=== PATIENT | male | born 1970 | race American Indian/Alaskan Native ===

== ENCOUNTER 2020-09-29 05:33 | Inpatient (IN) | payer MEDICAID, OTHER ==
[2020-09-29] MEDS ORDERED: ASPIRIN 325 MG TAB PO ONE (07:13)
[2020-09-29 07:36] LABS: Basophils % (Auto) 0.6 % (0.0-1.8); Eosinophils % (Auto) 0.4 % (0.0-4.3); Hematocrit 45.2 % (35.5-45.6); Hemoglobin 15.3 gm/dl (11.8-15.2); Lymphocytes # (Auto) 1.6 K/mm3 (1.2-5.4); Lymphocytes % (Auto) 21.7 % (13.4-35.0); Mean Corpuscular HGB Conc 34 % (32-34); Mean Corpuscular Volume 88 fl (84-94); Monocytes # (Auto) 0.5 K/mm3 (0.0-0.8); Monocytes % (Auto) 6.5 % (0.0-7.3); Platelet Count 203 K/mm3 (140-440); Red Blood Count 5.15 M/mm3 (3.65-5.03); Red Cell Distribution Width 13.3 % (13.2-15.2)
[2020-09-29 07:59] LABS: Alanine Aminotransferase 30 units/L (7-56); Albumin 4.7 g/dL (3.9-5); BUN/Creatinine Ratio 17; Blood Urea Nitrogen 17 mg/dL (9-20); Calcium 9.7 mg/dL (8.4-10.2); Hemolysis Index 4
--- NOTE | 2020-09-29 08:18 | XRay Report ---
CHEST 2 VIEWS INDICATION / CLINICAL INFORMATION: chest pain. COMPARISON: None available. FINDINGS: SUPPORT DEVICES: None. HEART / MEDIASTINUM: No significant abnormality. LUNGS / PLEURA: No significant pulmonary or pleural abnormality. No pneumothorax. ADDITIONAL FINDINGS: No significant additional findings. IMPRESSION: 1. No acute findings. Signer Name: Mis Alvarez MD Signed: 09/29/2020 8:13 AM Workstation Name: [id number]
--- NOTE | 2020-09-29 08:48 | Emergency Department Report ---
ED Chest Pain HPI - General Chief Complaint: Chest Pain Stated Complaint: CHEST PAIN Time Seen by Provider: 09/29/20 08:26 Source: patient Mode of arrival: Ambulatory Limitations: No Limitations - History of Present Illness Initial Comments: Chief complaint: Chest pain HPI: This is a 50-year-old male with history of dyslipidemia and GERD who has had recurrent chest pain for the past 2 weeks. Recently PCP diagnosed patient with dyslipidemia and GERD. He was prescribed sucralfate, pantoprazole, Reglan, and atorvastatin. He himself has taken 81 mg tablets of aspirin for the last 2 weeks. His mother had a history of heart attacks while she was in her 70s. Patient has eaten fast food greasy food over the last several days. He has chest pain discomfort at night. He feels as if something is stuck in his chest. Tends to occur at night. Tends to be worse in the morning. This morning he had severe discomfort worse on the left side and centrally. He contacted EMS who transported him to the hospital. He has no longer in discomfort. He did not have any shortness of breath or vomiting. Patient has cardiology appointment set for next month. MD Complaint: chest pain -: Gradual, week(s) (2 weeks) Onset: during rest, after eating Pain Location: substernal Pain Radiation: none Severity: moderate Severity scale (0 -10): 7 Quality: dull Consistency: now resolved Improves With: nothing Worsens With: nothing Treatments Prior to Arrival: other (EMS transport) - Related Data Allergies Allergy/AdvReac Type Severity Reaction Status Date / Time No Known Allergies Allergy Unverified 09/29/20 07:12 Heart Score - HEART Score History: Slightly suspicious EKG: Significant ST-depression Age: 45-65 Risk factors: 1-2 risk factors Troponin: < normal limit HEART Score: 4 ED Review of Systems ROS: Stated complaint: CHEST PAIN Other details as noted in HPI Comment: All other systems reviewed and negative Constitutional: denies: fever, malaise Respiratory: denies: cough, shortness of breath Cardiovascular: chest pain Gastrointestinal: denies: abdominal pain, nausea, vomiting ED Past Medical Hx - Past Medical History Previous Medical History?: Yes Hx GERD: Yes Additional medical history: Dyslipidemia - Surgical History Past Surgical History?: No - Family History Family history: vascular disease - Social History Smoking Status: Never Smoker Substance Use Type: None ED Physical Exam - General Limitations: No Limitations General appearance: alert, in no apparent distress, other (Pleasant smiling c omfortable talkative) - Head Head exam: Present: atraumatic, normocephalic - Eye Eye exam: Present: normal appearance - ENT ENT exam: Present: normal orophraynx, mucous membranes moist - Neck Neck exam: Present: normal inspection, full ROM - Respiratory Respiratory exam: Present: normal lung sounds bilaterally. Absent: respiratory distress, wheezes, rales, rhonchi - Cardiovascular Cardiovascular Exam: Present: regular rate, normal rhythm, normal heart sounds. Absent: systolic murmur, diastolic murmur, rubs, gallop - GI/Abdominal GI/Abdominal exam: Present: soft, normal bowel sounds. Absent: distended, tenderness, guarding, rebound - Rectal Rectal exam: Present: deferred - Extremities Exam Extremities exam: Present: normal inspection - Neurological Exam Neurological exam: Present: alert, oriented X3 - Psychiatric Psychiatric exam: Present: normal affect, normal mood - Skin Skin exam: Present: warm, dry, intact, normal color. Absent: rash ED Course Vital Signs 09/29/20 06:03 Temperature 98.5 F Pulse Rate 93 H Respiratory 18 Rate Blood Pressure 163/100 O2 Sat by Pulse 99 Oximetry ED Medical Decision Making - Lab Data Result diagrams: 09/29/20 07:17 09/29/20 07:17 Laboratory Results - last 24 hr 09/29/20 09/29/20 09/29/20 07:17 07:17 07:17 WBC 7.3 RBC 5.15 H Hgb 15.3 H Hct 45.2 MCV 88 MCH 30 MCHC 34 RDW 13.3 Plt Count 203 Lymph % (Auto) 21.7 [place] % (Auto) 6.5 Eos % (Auto) 0.4 Baso % (Auto) 0.6 Lymph # (Auto) 1.6 [place] # (Auto) 0.5 Eos # (Auto) 0.0 Baso # (Auto) 0.0 Seg Neutrophils % 70.8 H Seg Neutrophils # 5.2 Sodium 140 Potassium 4.1 Chloride 101.2 Carbon Dioxide 33 H Anion Gap 10 BUN 17 Creatinine 1.0 Estimated GFR > 60 BUN/Creatinine Ratio 17 Glucose 128 H Calcium 9.7 Total Bilirubin 0.50 AST 28 ALT 30 Alkaline Phosphatase 93 Troponin T 0.045 H Total Protein 7.7 Albumin 4.7 Albumin/Globulin Ratio 1.6 - EKG Data -: EKG Interpreted by Me EKG shows normal: sinus rhythm, axis, intervals, QRS complexes Rate: normal - EKG Data 09/29/20 08:48 EKG obtained 0548 EKG interpreted by me Normal sinus rhythm rate 89 bpm normal axis normal intervals ST depression in inferior lateral leads [address] elevation in aVR - Radiology Data Radiology results: report reviewed CHEST 2 VIEWS INDICATION / CLINICAL INFORMATION: chest pain. COMPARISON: None available. FINDINGS: SUPPORT DEVICES: None. HEART / MEDIASTINUM: No significant abnormality. LUNGS / PLEURA: No significant pulmonary or pleural abnormality. No pneumothorax. ADDITIONAL FINDINGS: No significant additional findings. IMPRESSION: 1. No acute findings - Medical Decision Making Acute coronary syndrome, patient has abnormal EKG with elevated troponin. Patient given aspirin. Patient currently chest pain-free. I spoke with Mikaela Hernandez NP for [facility], Heparin therapy initiated. Critical care attestation.: If time is entered above; I have spent that time in minutes in the direct care of this critically ill patient, excluding procedure time. ED Disposition Clinical Impression: Acute coronary syndrome Disposition: OP ADMIT IP TO THIS HOSP Is pt being admited?: Yes Does the pt Need Aspirin: No Condition: Stable
[2020-09-29] MEDS ORDERED: HEPARIN 10,000 UNITS/10 ML VIAL IV PRN (10:01)
[2020-09-29] MEDS ORDERED: HEPARIN 10,000 UNITS/10 ML VIAL IV ONE (10:01)
[2020-09-29 10:07] LABS: Chol/HDL Ratio 3.4 %
[2020-09-29 10:52] LABS: Hematocrit 45.4 % (35.5-45.6); Hemoglobin 15.3 gm/dl (11.8-15.2)
[2020-09-29 11:00] LABS: INR 0.91 (0.87-1.13); Partial Thromboplastin Time 29.7 Sec. (24.2-36.6)
[2020-09-29] MEDS ORDERED: ALBUTEROL 2.5 MG/3 ML NEBU IH PRN (11:00)
[2020-09-29] MEDS ORDERED: ACETAMINOPHEN 325 MG TAB PO PRN (11:00)
[2020-09-29] MEDS ORDERED: MORPHINE 2 MG/1 ML INJ IV PRN (11:00)
[2020-09-29] MEDS ORDERED: ONDANSETRON 4 MG/2 ML INJ IV PRN (11:00)
[2020-09-29] MEDS ORDERED: PANTOPRAZOLE 40 MG INJ IV SCH (11:00)
[2020-09-29] MEDS ORDERED: HEPARIN/ 0.45% NACL DRIP 25,000 UNIT/500 ML BAG IV SCH (11:00)
[2020-09-29] MEDS ORDERED: DEXTROSE 50% IN WATER (25GM) 50 ML SYRINGE IV PRN (11:00)
[2020-09-29] MEDS: METOCLOPRAMIDE 10 MG TAB PO SCH ×3 (12:02→21:38)
--- NOTE | 2020-09-29 12:50 | Consultation ---
History of Present Illness Consult date: 09/29/20 Consult reason: chest pain History of present illness: This is a 50 year old M with no prior cardiac history who presents to the emergency department with chest pain, intermittent for several weeks. Patient reports chest on on exertion or with heavy lifting associated with shortness of breath. A week ago, he saw his PCP who prescribed Protonix for GERD and referred him to [facility] cardiology and has an upcoming appointment. Chest x-ray is n egative. Initial troponin measurement is mildly elevated and his ECG is sinus rhythm with inferior lateral ST depression. No prior ECG for comparison. Past History Past Medical History: hyperlipidemia Social history: smoking (former), alcohol abuse (former) Medications and Allergies Allergies Allergy/AdvReac Type Severity Reaction Status Date / Time No Known Allergies Allergy Unverified 09/29/20 07:12 Active Meds: Active Medications Acetaminophen (Acetaminophen 325 Mg Tab) 650 mg PO Q4H PRN PRN Reason: Pain MILD(1-3)/Fever >100.5/TOTH Albuterol (Albuterol 2.5 Mg/3 Ml Nebu) 2.5 mg IH Q3HRT PRN PRN Reason: Shortness Of Breath Albuterol/Ipratropium (Ipratropium/Albuterol Sulfate 3 Ml Ampul.Neb) 1 ampul IH Q6HRT JT Aspirin (Aspirin 325 Mg Tab) 325 mg PO QDAY JT Atorvastatin Calcium (Atorvastatin 40 Mg Tab) 40 mg PO QHS JT Dextrose (Dextrose 50% In Water (25gm) 50 Ml Syringe) 50 ml IV Q30MIN PRN; Protocol PRN Reason: Hypoglycemia Heparin Sodium (Porcine) (Heparin 10,000 Units/10 Ml Vial) 2,500 unit 40 unit/kg (2500 unit) IV Q6H PRN PRN Reason: Anti-Xa Assay < 0.1 units/ml Heparin Sodium/Sodium Chloride (Heparin/ 0.45% Nacl-25,000 Unit/500 Ml) 25,000 unit in 500 mls @ 18 mls/hr IV TITRATE JT; Protocol Last Admin: 09/29/20 11:13 Dose: 900 units/hr, 18 mls/hr Documented by: Metoclopramide HCl (Metoclopramide 10 Mg Tab) 5 mg PO ACHS JT Last Admin: 09/29/20 12:02 Dose: 5 mg Documented by: Morphine Sulfate (Morphine 2 Mg/1 Ml Inj) 2 mg IV Q4H PRN PRN Reason: Pain, Moderate (4-6) Ondansetron HCl (Ondansetron 4 Mg/2 Ml Inj) 4 mg IV Q8H PRN PRN Reason: Nausea And Vomiting Pantoprazole Sodium (Pantoprazole 40 Mg Inj) 40 mg IV QDAY [facility] Last Admin: 09/29/20 11:09 Dose: 40 mg Documented by: Sodium Chloride (Sodium Chloride 0.9% 10 Ml Flush Syringe) 10 ml IV BID [facility] Last Admin: 09/29/20 11:09 Dose: 10 ml Documented by: Sodium Chloride (Sodium Chloride 0.9% 10 Ml Flush Syringe) 10 ml IV PRN PRN PRN Reason: LINE FLUSH Review of Systems Cardiovascular: chest pain, shortness of breath (intermittent), no palpitations, no rapid/irregular heart beat, no edema, no syncope, no lightheadedness Physical Examination Vital Signs Temp Pulse Resp BP Pulse Ox 98.5 F 93 H 18 163/100 99 09/29/20 06:03 09/29/20 06:03 09/29/20 06:03 09/29/20 06:03 09/29/20 06:03 General appearance: no acute distress HEENT: Positive: PERRL Neck: Positive: trachea midline Cardiac: Positive: Reg Rate and Rhythm Lungs: Positive: Normal Breath Sounds Neuro: Positive: Grossly Intact Extremities: Absent: edema Results 09/29/20 10:20 09/29/20 07:17 Cardiac Enzymes 09/29/20 Range/Units 07:17 AST 28 (5-40) units/L Coagulation 09/29/20 Range/Units 10:20 PT 12.1 L (12.2-14.9) Sec. INR 0.91 (0.87-1.13) APTT 29.7 (24.2-36.6) Sec. Lipids 09/29/20 Range/Units 07:17 Triglycerides 64 (2-149) mg/dL Cholesterol 143 (50-199) mg/dL HDL Cholesterol 42 (40-59) mg/dL Cholesterol/HDL Ratio 3.40 % CBC 09/29/20 09/29/20 Range/Units 07:17 10:20 WBC 7.3 (4.5-11.0) K/mm3 RBC 5.15 H (3.65-5.03) M/mm3 Hgb 15.3 H 15.3 H (11.8-15.2) gm/dl Hct 45.2 45.4 (35.5-45.6) % Plt Count 203 209 (140-440) K/mm3 Lymph # (Auto) 1.6 (1.2-5.4) K/mm3 [place] # (Auto) 0.5 (0.0-0.8) K/mm3 Eos # (Auto) 0.0 (0.0-0.4) K/mm3 Baso # (Auto) 0.0 (0.0-0.1) K/mm3 Comprehensive Metabolic Panel 09/29/20 Range/Units 07:17 Sodium 140 (137-145) mmol/L Potassium 4.1 (3.6-5.0) mmol/L Chloride 101.2 (98-107) mmol/L Carbon Dioxide 33 H (22-30) mmol/L BUN 17 (9-20) mg/dL Creatinine 1.0 (0.8-1.3) mg/dL Glucose 128 H (75-100) mg/dL Calcium 9.7 (8.4-10.2) mg/dL AST 28 (5-40) units/L ALT 30 (7-56) units/L Alkaline Phosphatase 93 (35-129) units/L Total Protein 7.7 (6.3-8.2) g/dL Albumin 4.7 (3.9-5) g/dL
--- NOTE | 2020-09-29 13:36 | History and Physical Report ---
History of Present Illness Date of examination: 09/29/20 Date of admission: 09/29/20 10:03 Chief complaint: Left-sided chest pain History of present illness: Patient is a 50-year-old male with past medical history of GERD, hyperlipidemia who presents to the ED with complaints of chest pain that has been ongoing intermittently for about a week worse in the last 2 days and also this morning on waking. Was recently seen by GI outpatient and treated with antacids and reflux medications. He reports that his pain is 3/10 in intensity this morning woke him up from sleep. Otherwise is normally exacerbated by activity or heavy lifting but dissipates with rest. There is no reproducible. In the ED he was noted to have borderline ST depression with mild elevation in troponin concerning for ischemia. Is being admitted for further cardiology work-up and possible cardiac catheterization. Past History Past Medical History: hyperlipidemia Past Surgical History: No surgical history Social history: smoking (former), alcohol abuse (former) Family history: diabetes (Mother) Medications and Allergies Allergies Allergy/AdvReac Type Severity Reaction Status Date / Time No Known Allergies Allergy Unverified 09/29/20 07:12 Active Meds: Active Medications Acetaminophen (Acetaminophen 325 Mg Tab) 650 mg PO Q4H PRN PRN Reason: Pain MILD(1-3)/Fever >100.5/TOTH Albuterol (Albuterol 2.5 Mg/3 Ml Nebu) 2.5 mg IH Q3HRT PRN PRN Reason: Shortness Of Breath Albuterol/Ipratropium (Ipratropium/Albuterol Sulfate 3 Ml Ampul.Neb) 1 ampul IH Q6HRT JT Aspirin (Aspirin 325 Mg Tab) 325 mg PO QDAY JT Atorvastatin Calcium (Atorvastatin 40 Mg Tab) 40 mg PO QHS JT Dextrose (Dextrose 50% In Water (25gm) 50 Ml Syringe) 50 ml IV Q30MIN PRN; Protocol PRN Reason: Hypoglycemia Heparin Sodium (Porcine) (Heparin 10,000 Units/10 Ml Vial) 2,500 unit 40 unit/kg (2500 unit) IV Q6H PRN PRN Reason: Anti-Xa Assay < 0.1 units/ml Heparin Sodium/Sodium Chloride (Heparin/ 0.45% Nacl-25,000 Unit/500 Ml) 25,000 unit in 500 mls @ 18 mls/hr IV TITRATE JT; Protocol Last Admin: 09/29/20 11:13 Dose: 900 units/hr, 18 mls/hr Documented by: Metoclopramide HCl (Metoclopramide 10 Mg Tab) 5 mg PO ACHS [facility] Last Admin: 09/29/20 12:02 Dose: 5 mg Documented by: Metoprolol Tartrate (Metoprolol Tartrate 50 Mg Tab) 50 mg PO Q8H [facility] Morphine Sulfate (Morphine 2 Mg/1 Ml Inj) 2 mg IV Q4H PRN PRN Reason: Pain, Moderate (4-6) Nitroglycerin (Nitroglycerin 2% Oint 1 Gm) 1 inch TP QIDNTG [facility]; Protocol Ondansetron HCl (Ondansetron 4 Mg/2 Ml Inj) 4 mg IV Q8H PRN PRN Reason: Nausea And Vomiting Pantoprazole Sodium (Pantoprazole 40 Mg Inj) 40 mg IV QDAY [facility] Last Admin: 09/29/20 11:09 Dose: 40 mg Documented by: Sodium Chloride (Sodium Chloride 0.9% 10 Ml Flush Syringe) 10 ml IV BID [facility] Last Admin: 09/29/20 11:09 Dose: 10 ml Documented by: Sodium Chloride (Sodium Chloride 0.9% 10 Ml Flush Syringe) 10 ml IV PRN PRN PRN Reason: LINE FLUSH Review of Systems All systems: negative Constitutional: no weight loss, no weight gain, no fever, no chills, no sweats, no fatigue, no weakness, no malaise Cardiovascular: chest pain, no orthopnea, no palpitations, no rapid/irregular heart beat, no edema, no syncope, no lightheadedness, no shortness of breath, no dyspnea on exertion, no phlebitis, no decreased exercise tolerance Respiratory: no cough, no cough with sputum, no hemoptysis, no shortness of breath, no dyspnea on exertion, no wheezing Gastrointestinal: no abdominal pain, no nausea, no diarrhea, no constipation, no change in bowel habits, no hematemesis, no melena, no loss of appetite, no early satiety Exam - Physical Exam Narrative exam: VITAL SIGNS: Reviewed. GENERAL: The patient appears normally developed, Vital signs as documented. HEAD: No signs of head trauma. EYES: Pupils are equal. Extraocular motions intact. EARS: Hearing grossly intact. MOUTH: Oropharynx is normal. NECK: No adenopathy, no JVD. CHEST: Chest with clear breath sounds bilaterally. No wheezes, rales, or rhonchi. CARDIAC: Regular rate and rhythm. S1 and S2, without murmurs, gallops, or rubs. VASCULAR: No Edema. Peripheral pulses normal and equal in all extremities. ABDOMEN: Soft, non tender and non distended. No rebound or guarding, and no masses palpated. Bowel Sounds normal. MUSCULOSKELETAL: Good range of motion of all major joints. Extremities without clubbing, cyanosis or edema. NEUROLOGIC EXAM: Alert and oriented x 3 No focal sensory or strength deficits. Speech normal. Follows commands. PSYCHIATRIC: Mood normal. SKIN: detail exam as documented in skin assessment - Constitutional Vitals: Temp Pulse Resp BP Pulse Ox 98.5 F 93 H 18 163/100 99 09/29/20 06:03 09/29/20 06:03 09/29/20 06:03 09/29/20 06:03 09/29/20 06:03 HEART Score - HEART Score EKG: Significant ST-depression Age: 45-65 Risk factors: 1-2 risk factors Troponin: Troponin T 0.045 ng/mL (0.00-0.029) H 09/29/20 07:17 Troponin: < normal limit Results - Labs CBC & Chem 7: 09/29/20 10:20 09/29/20 07:17 Labs: Laboratory Last Values WBC 7.3 K/mm3 (4.5-11.0) 09/29/20 07:17 RBC 5.15 M/mm3 (3.65-5.03) H 09/29/20 07:17 Hgb 15.3 gm/dl (11.8-15.2) H 09/29/20 10:20 Hct 45.4 % (35.5-45.6) 09/29/20 10:20 MCV 88 fl (84-94) 09/29/20 07:17 MCH 30 pg (28-32) 09/29/20 07:17 MCHC 34 % (32-34) 09/29/20 07:17 RDW 13.3 % (13.2-15.2) 09/29/20 07:17 Plt Count 209 K/mm3 (140-440) 09/29/20 10:20 Lymph % (Auto) 21.7 % (13.4-35.0) 09/29/20 07:17 [place] % (Auto) 6.5 % (0.0-7.3) 09/29/20 07:17 Eos % (Auto) 0.4 % (0.0-4.3) 09/29/20 07:17 Baso % (Auto) 0.6 % (0.0-1.8) 09/29/20 07:17 Lymph # (Auto) 1.6 K/mm3 (1.2-5.4) 09/29/20 07:17 [place] # (Auto) 0.5 K/mm3 (0.0-0.8) 09/29/20 07:17 Eos # (Auto) 0.0 K/mm3 (0.0-0.4) 09/29/20 07:17 Baso # (Auto) 0.0 K/mm3 (0.0-0.1) 09/29/20 07:17 Seg Neutrophils % 70.8 % (40.0-70.0) H 09/29/20 07:17 Seg Neutrophils # 5.2 K/mm3 (1.8-7.7) 09/29/20 07:17 PT 12.1 Sec. (12.2-14.9) L 09/29/20 10:20 INR 0.91 (0.87-1.13) 09/29/20 10:20 APTT 29.7 Sec. (24.2-36.6) 09/29/20 10:20 Sodium 140 mmol/L (137-145) 09/29/20 07:17 Potassium 4.1 mmol/L (3.6-5.0) 09/29/20 07:17 Chloride 101.2 mmol/L (98-107) 09/29/20 07:17 Carbon Dioxide 33 mmol/L (22-30) H 09/29/20 07:17 Anion Gap 10 mmol/L 09/29/20 07:17 BUN 17 mg/dL (9-20) 09/29/20 07:17 Creatinine 1.0 mg/dL (0.8-1.3) 09/29/20 07:17 Estimated GFR > 60 ml/min 09/29/20 07:17 BUN/Creatinine Ratio 17 % 09/29/20 07:17 Glucose 128 mg/dL (75-100) H 09/29/20 07:17 Calcium 9.7 mg/dL (8.4-10.2) 09/29/20 07:17 Total Bilirubin 0.50 mg/dL (0.1-1.2) 09/29/20 07:17 AST 28 units/L (5-40) 09/29/20 07:17 ALT 30 units/L (7-56) 09/29/20 07:17 Alkaline Phosphatase 93 units/L (35-129) 09/29/20 07:17 Troponin T 0.045 ng/mL (0.00-0.029) H 09/29/20 07:17 Total Protein 7.7 g/dL (6.3-8.2) 09/29/20 07:17 Albumin 4.7 g/dL (3.9-5) 09/29/20 07:17 Albumin/Globulin Ratio 1.6 % 09/29/20 07:17 Triglycerides 64 mg/dL (2-149) 09/29/20 07:17 Cholesterol 143 mg/dL (50-199) 09/29/20 07:17 LDL Cholesterol Direct 98 mg/dL (50-130) 09/29/20 07:17 HDL Cholesterol 42 mg/dL (40-59) 09/29/20 07:17 Cholesterol/HDL Ratio 3.40 % 09/29/20 07:17 Assessment and Plan Assessment and plan: Patient is a 50-year-old male with past medical history of GERD, hyperlipidemia who presents to the ED with complaints of chest pain that has been ongoing intermittently for about a week worse in the last 2 days and also this morning on waking. Was recently seen by GI outpatient and treated with antacids and reflux medications. He reports that his pain is 3/10 in intensity this morning woke him up from sleep. Otherwise is normally exacerbated by activity or heavy lifting but dissipates with rest. There is no reproducible. In the ED he was noted to have borderline ST depression with mild elevation in troponin concerning for ischemia. Is being admitted for further cardiology work-up and possible cardiac catheterization. Non-ST elevated CT GERD Hyperlipidemia PLAN Admit to [facility] for pain Oxygen Plan as outlined by Cardiology Continue IV heparin, nitrates, beta-blockers, aspirin and statin. NPO after midnight for cardiac catheterization DVT/GI prophy Plan discussed with the patient in detail Advance Directives: Yes Plan of care discussed with patient/family: Yes
[2020-09-29] MEDS: METOPROLOL TARTRATE 50 MG TAB PO SCH ×2 (15:33→21:38)
[2020-09-29] MEDS: IPRATROPIUM/ALBUTEROL SULFATE 3 ML AMPUL.NEB IH SCH ×2 (15:34→20:07)
[2020-09-29] MEDS: NITROGLYCERIN 2% OINT 1 GM TP SCH ×2 (15:34→19:48)
[2020-09-29 16:28] LABS: Creatine Kinase MB 12.2 ng/mL (0.0-4.0)
[2020-09-29 19:23] LABS: Creatine Kinase MB 11.3 ng/mL (0.0-4.0)
[2020-09-29] MEDS ORDERED: FAMOTIDINE 20 MG/2 ML INJ IV SCH (22:00)
[2020-09-30] MEDS: IPRATROPIUM/ALBUTEROL SULFATE 3 ML AMPUL.NEB IH SCH ×2 (02:13→08:21)
[2020-09-30 02:41] LABS: INR 1.04 (0.87-1.13)
[2020-09-30 05:39] LABS: BUN/Creatinine Ratio 15; Blood Urea Nitrogen 16 mg/dL (9-20); Calcium 9.2 mg/dL (8.4-10.2); Hemolysis Index 7
[2020-09-30] MEDS: METOPROLOL TARTRATE 50 MG TAB PO SCH (05:42)
[2020-09-30] MEDS: NITROGLYCERIN 2% OINT 1 GM TP SCH ×2 (05:42→14:50)
[2020-09-30] MEDS ORDERED: ASPIRIN 325 MG TAB ONE (07:54)
[2020-09-30] MEDS ORDERED: SODIUM CHLORIDE 0.9% 500 ML 500 ML IV SCH (08:00)
[2020-09-30] MEDS ORDERED: HEPARIN/NS 5000 UNIT/500ML 1,000 ML IR ONE (08:03)
[2020-09-30] MEDS ORDERED: MIDAZOLAM 2 MG/2 ML INJ ONE (08:03)
[2020-09-30] MEDS ORDERED: HEPARIN 10,000 UNITS/10 ML VIAL ONE ×2 (08:03→13:01)
[2020-09-30] MEDS ORDERED: LIDOCAINE (2%) 20 MG/1 ML VIAL 20 ML MDV INFILTRATI ONE ×2 (08:04→08:45)
[2020-09-30] MEDS ORDERED: fentaNYL 100 MCG/2 ML INJ ONE (08:04)
[2020-09-30] MEDS ORDERED: VERAPAMIL 5 MG/2 ML INJ ONE (08:04)
[2020-09-30] MEDS ORDERED: NITROGLYCERIN SYRINGE 3 ML ONE (08:04)
[2020-09-30] MEDS ORDERED: MIDAZOLAM 2 MG/2 ML INJ IV ONE (08:41)
[2020-09-30] MEDS ORDERED: fentaNYL 100 MCG/2 ML INJ IV ONE (08:41)
[2020-09-30] MEDS ORDERED: VERAPAMIL 5 MG/2 ML INJ ART-SHEATH ONE (08:45)
[2020-09-30] MEDS ORDERED: NITROGLYCERIN 600 MCG/3 ML SYRINGE ART-SHEATH ONE (08:46)
[2020-09-30] MEDS ORDERED: NS IV ONE (08:47)
[2020-09-30] MEDS ORDERED: TIROFIBAN IV ONE (08:47)
[2020-09-30] MEDS ORDERED: HEPARIN 10,000 UNITS/10 ML VIAL ART-SHEATH ONE (08:47)
--- NOTE | 2020-09-30 09:20 | Cardiac Catherization Report ---
CARDIAC CATHETERIZATION REPORT REASON FOR PROCEDURE: The patient is a 50-year-old man who presented with chest pain, ST depression and elevated cardiac isoenzymes, consistent with a non-ST elevation myocardial infarction. Cardiac catheterization was recommended as part of an early invasive therapy. PROCEDURES: 1. Left heart catheterization. 2. Selective left and right coronary angiography. 3. Left ventricular angiography. 4. Sedation time, start 0841, end 0855. I was present for the entire procedure and supervised the moderate sedation protocol. The patient was prepped and draped in a sterile fashion after informed consent. The right radial cath site was prepped and draped after a negative Lior's test. The right radial artery was entered using Seldinger technique, followed by placement of a 6-Tajik hydrophilic sheath. Routine radial cocktail was administered via the sheath. Selective left and right coronary angiography was performed using a #3.5 left Alexus and #4 right Alexus. The right Alexus was used for left ventricular angiography. Catheters were removed, sheath removed, and hemostasis achieved using a TR band. The patient was returned to the postprocedure unit in stable condition. There were no complications. FINDINGS: HEMODYNAMICS: Left ventricular end-diastolic pressure was 30, following coronary angiography. Ascending aortic pressure was 160/96. There was no significant pressure gradient on pullback across the aortic valve. CORONARY ANGIOGRAPHY: The left main coronary artery was free of significant disease. The left anterior descending artery contained a long, greater than 99% stenosis of its proximal to mid segment, this was a bifurcation lesion involving the origin of a very large proximal diagonal branch. The lesion was associated with delayed antegrade flow down the LAD. The large obtuse marginal branch of the circumflex artery contained a hazy, 90% stenosis of its proximal to mid segment. The right coronary artery was dominant. This vessel contained diffuse atherosclerosis of its mid segment with 2 sequential 70-75% stenosis. Following this, there was another 80% ostial stenosis of a medium to large posterior ventricular branch Left ventricular systolic function was within normal limits, ejection fraction of 55%. CONCLUSION: 1. Severe 3-vessel disease including complex bifurcation disease of the proximal to mid left anterior descending artery and large first diagonal branch. 2. Well preserved left ventricular systolic function, ejection fraction of 55%. RECOMMENDATION: Optimal revascularization strategy will be coronary artery bypass surgery. JOB# [id number] CARIE/WES
[2020-09-30] MEDS ORDERED: ASPIRIN 325 MG TAB PO SCH (10:00)
--- NOTE | 2020-09-30 11:33 | Discharge Summary ---
Providers - Providers Date of Admission: 09/29/20 10:03 Attending physician: CANDIS LEWIS MD 09/29/20 09:59 Consult to Physician [CONS] Stat Comment: Consulting Provider: DELTA CALLES Physician Instructions: Reason For Exam: acute coronary syndrome Primary care physician: [employer] Hospitalization Reason for admission: nstemi Condition: Stable Hospital course: Patient is a 50-year-old male with past medical history of GERD, hyperlipidemia who presents to the ED with complaints of chest pain that has been ongoing intermittently for about a week worse in the last 2 days and also this morning on waking. Was recently seen by GI outpatient and treated with antacids and reflux medications. He reports that his pain is 3/10 in intensity this morning woke him up from sleep. Otherwise is normally exacerbated by activity or heavy lifting but dissipates with rest. There is no reproducible. In the ED he was noted to have borderline ST depression with mild elevation in troponin concerning for ischemia. Is being admitted for further cardiology work-up and possible cardiac catheterization. Patient presented for cardiac catheterization was noted below We performed a cardiac catheterization via the right radial approach, no complications. We found severe three-vessel coronary artery disease. The culprit lesion for the current infarct is a subtotal occlusion of the proximal to mid LAD, involving the origin of a large diagonal branch. In addition, there is a severe lesion of the mid obtuse marginal branch of the circumflex artery, as well as diffuse complex disease of the mid right coronary followed by an 80% ostial stenosis of the right posterior descending branch. Left ventricular systolic function was well-preserved, ejection fraction 55%. Due to the finding of complex three-vessel coronary artery disease, the patient will be referred for surgical multivessel revascularization. We will resume heparin and other guideline directed medical therapy, and plan transfer to [place] for further evaluation and management. Non-ST elevated HI GERD Hyperlipidemia Disposition: DC/TX-70 ANOTHER TYPE [facility] Final Discharge Diagnosis (Prints w/discharge instructions): NSTEMI Time spent for discharge: 35 MINS Core Measure Documentation - Palliative Care Palliative Care/ Comfort Measures: Not Applicable - Core Measures Any of the following diagnoses?: acute HI - Acute HI Discharge Requirements Aspirin at discharge: Yes LANDON/ARB for LVSD if EF <40%: Yes Beta joe at discharge: Yes Statin for LDL = or >100 mg/dl on DC: Yes Exam - Physical Exam Narrative exam: VITAL SIGNS: Reviewed. GENERAL: The patient appears normally developed, Vital signs as documented. HEAD: No signs of head trauma. EYES: Pupils are equal. Extraocular motions intact. EARS: Hearing grossly intact. MOUTH: Oropharynx is normal. NECK: No adenopathy, no JVD. CHEST: Chest with clear breath sounds bilaterally. No wheezes, rales, or rhonchi. CARDIAC: Regular rate and rhythm. S1 and S2, without murmurs, gallops, or rubs. VASCULAR: No Edema. Peripheral pulses normal and equal in all extremities. ABDOMEN: Soft, non tender and non distended. No rebound or guarding, and no masses palpated. Bowel Sounds normal. MUSCULOSKELETAL: Good range of motion of all major joints. Extremities without clubbing, cyanosis or edema. NEUROLOGIC EXAM: Alert and oriented x 3 No focal sensory or strength deficits. Speech normal. Follows commands. PSYCHIATRIC: Mood normal. SKIN: detail exam as documented in skin assessment - Constitutional Vitals: Temp Pulse Resp BP Pulse Ox 98.5 F 76 23 143/89 98 09/30/20 09:24 09/30/20 11:00 09/30/20 11:00 09/30/20 11:00 09/30/20 11:00 Plan Activity: advance as tolerated, fall precautions Diet: low fat Special Instructions: record daily weights, record daily BP diary Follow up with: PRIMARY CAREMD [Primary Care Provider] - 7 Days
[2020-09-30] MEDS ORDERED: HEPARIN 10,000 UNITS/10 ML VIAL IV ONE (13:02)
[2020-09-30] MEDS ORDERED: traMADol 50 MG TAB PO PRN (14:29)
--- NOTE | 2020-09-30 14:29 | Event Note ---
Date: 09/30/20 We performed a cardiac catheterization via the right radial approach, no complications. We found severe three-vessel coronary artery disease. The culprit lesion for the current infarct is a subtotal occlusion of the proximal to mid LAD, involving the origin of a large diagonal branch. In addition, there is a severe lesion of the mid obtuse marginal branch of the circumflex artery, as well as diffuse complex disease of the mid right coronary followed by an 80% ostial stenosis of the right posterior descending branch. Left ventricular systolic function was well-preserved, ejection fraction 55%. Due to the finding of complex three-vessel coronary artery disease, the patient will be referred for surgical multivessel revascularization. We will resume heparin and other guideline directed medical therapy, and plan transfer to [place] for further evaluation and management.
[2020-09-30] MEDS ORDERED: SODIUM CHLORIDE 0.9% 1000 ML 1,000 ML IV SCH (14:30)
[2020-09-30] MEDS: METOCLOPRAMIDE 10 MG TAB PO SCH (14:48)
[2020-09-30 15:10] VITALS: BP 132/85
== END 2020-09-30 15:47 | disposition short-term general hospital (02) | DRG 282 ==
LOC: ED 05:33 → 4A 10:03 → IMCU 11:23
PROVIDERS: ADMIT Internal Medicine; ATTEND Internal Medicine
PROC: 4A023N7 Measurement of Cardiac Sampling and Pressure, Left Heart, Percutaneous Approach (ICD-10-PCS; principal; 2020-09-30)
PROC: B2111ZZ Fluoroscopy of Multiple Coronary Arteries using Low Osmolar Contrast (ICD-10-PCS; 2020-09-30)
PROC: B2151ZZ Fluoroscopy of Left Heart using Low Osmolar Contrast (ICD-10-PCS; 2020-09-30)
DX: I21.4 Non-ST elevation (NSTEMI) myocardial infarction (principal); K21.9 Gastro-esophageal reflux disease without esophagitis; E78.5 Hyperlipidemia, unspecified; Z87.891 Personal history of nicotine dependence
CPT/HCPCS: 36415; 71046; 80048; 80053; 80061; 82550; 82553; 84484; 85014; 85018; 85025; 85049; 85520; 85610; 85730; 93005; 93458; 94640; 96374; G0378; A9270-GY; C1894; C9113; J1644; J2250; J3010; J3246; J7040; Q9967